=== PATIENT | female | born 1945 | race Caucasian/White ===

== ENCOUNTER 2018-02-16 13:21 | Inpatient (IN) | payer OTHER, MEDICAID ==
[~2018-02-16] VITALS: Ht 160 cm; Wt 83.0 kg
[2018-02-16 13:29] VITALS: BP_SYST 124
[2018-02-16] MEDS ORDERED: NACL 0.9% 1,000 ML IV ONE (14:15)
[2018-02-16 14:31] LABS: BASOPHILS # (AUTO) 0.1 K/uL (0.0-0.2); BASOPHILS % (AUTO) 0.7 % (0.0-2.0); EOSINOPHILS # (AUTO) 0.3 K/uL (0.0-0.4); EOSINOPHILS % (AUTO) 3.6 % (0.0-4.0); HEMATOCRIT 23.7 % (36-48); HEMOGLOBIN 7.5 g/dL (12.0-16.0); LYMPHOCYTES # (AUTO) 1.9 K/uL (1.0-5.5); LYMPHOCYTES % (AUTO) 20.8 % (20.5-51.5); MEAN CORPUSCULAR HEMOGLOBIN 28 pg (27-31); MEAN CORPUSCULAR HGB CONC 32 % (32-36); MEAN CORPUSCULAR VOLUME 87 fL (79.0-98.0); MONOCYTES # (AUTO) 0.5 K/uL (0.0-1.0); NEUTROPHILS # (AUTO) 6.2 K/uL (1.8-7.7); NEUTROPHILS % (AUTO) 68.9 % (40.0-70.0); PLATELET COUNT (AUTO) 458 K/uL (130-430); RED BLOOD CELL COUNT(AUTO) 2.71 MIL/uL (4.2-6.2); RED CELL DISTRIBUTION WIDTH 19.4 % (9.0-15.0); WHITE BLOOD COUNT (AUTO) 9.1 K/uL (4.8-10.8)
[2018-02-16 14:38] LABS: ANION GAP 2 (5-15); CALCIUM 9.6 mg/dL (8.4-11.0); CHLORIDE 99 mmol/L (98-107); CREATININE 1.72 mg/dL (0.55-1.30); GLUCOSE 168 mg/dL (70-99); POTASSIUM 4.7 mmol/L (3.5-5.1); PROTHROMBIN TIME 10.3 SECS (9.5-12.5); SODIUM SERUM 134 mmol/L (136-145); UREA NITROGEN, BLOOD 56 mg/dL (8-21)
[2018-02-16 14:43] LABS: ALANINE AMINOTRANSFERASE 10 U/L (12-78); ALBUMIN 2.5 g/dL (3.4-4.8); ASPARTATE AMINOTRANSFERASE 16 U/L (10-37); LIPASE 145 U/L (73-393); TOTAL BILIRUBIN 0.2 mg/dL (0.0-1.0)
[2018-02-16] MEDS ORDERED: PREG75CA PO (15:20)
[2018-02-16] MEDS ORDERED: DOCU-144 PO (15:20)
[2018-02-16] MEDS ORDERED: ACET325T53 PO (15:20)
[2018-02-16] MEDS ORDERED: MOM PO (15:20)
[2018-02-16] MEDS ORDERED: LORA-258 PO (15:20)
[2018-02-16] MEDS ORDERED: SUCR1TAB78 PO (15:20)
[2018-02-16] MEDS ORDERED: FLUT1AER INH (15:20)
[2018-02-16] MEDS ORDERED: LORA-975 PO (15:20)
[2018-02-16] MEDS ORDERED: ASCO500T20 PO (15:20)
[2018-02-16] MEDS ORDERED: IPRA0.2S53 IH (15:20)
[2018-02-16] MEDS ORDERED: LINA290C PO (15:20)
[2018-02-16] MEDS ORDERED: INSNLG7030 SUBCUT (15:20)
[2018-02-16] MEDS ORDERED: MELA3TAB PO (15:20)
[2018-02-16] MEDS ORDERED: RANI300T7 PO (15:20)
[2018-02-16] MEDS ORDERED: FERR12.5 PO (15:20)
[2018-02-16] MEDS ORDERED: OXYC5SOL17 PO (15:20)
[2018-02-16] MEDS ORDERED: FEN12PAT TD (15:20)
[2018-02-16] MEDS ORDERED: SITA100T11 PO (15:20)
[2018-02-16] MEDS ORDERED: SIMV10TA2 PO (15:20)
[2018-02-16] MEDS ORDERED: MEMA5TAB PO (15:20)
[2018-02-16] MEDS ORDERED: NITSL SL (15:20)
[2018-02-16] MEDS ORDERED: OXYC-580 PO (15:20)
[2018-02-16] MEDS ORDERED: OMEP40CA33 PO (15:20)
[2018-02-16] MEDS ORDERED: ALLO100T PO (15:20)
[2018-02-16] MEDS ORDERED: BUPR75TA8 (15:20)
[2018-02-16] MEDS ORDERED: LOSA50TA3 PO (15:20)
[2018-02-16] MEDS ORDERED: INSULIN ASPART 100 UNITS/ML, 10 ML VIAL (NovoLOG) SUBCUT PRN (15:30)
[2018-02-16 16:40] VITALS: BP_SYST 100
[2018-02-16 16:55] VITALS: BP_SYST 100
[2018-02-16] MEDS ORDERED: OXYCODONE HCL 5 MG PO PRN (17:30)
[2018-02-16] MEDS ORDERED: SUCRALFATE 1 GM TABLET PO PRN (17:30)
[2018-02-16] MEDS ORDERED: NITROGLYCERIN 0.4 MG TAB.SUBL SL PRN (17:30)
[2018-02-16] MEDS ORDERED: ACETAMINOPHEN 650 MG/20.3 ML UDC GT PRN (18:00)
[2018-02-16] MEDS: DIPHENHYDRAMINE HCL 12.5 MG/5 ML UDC PO PRN (18:24)
[2018-02-16] MEDS: oxyCODONE HCL 5 MG TABLET PO PRN (18:24)
[2018-02-16] MEDS ORDERED: ALLOPURINOL 100 MG TABLET (ZYLOPRIM) PO ONE (18:30)
[2018-02-16 20:00] VITALS: BP_SYST 122
[2018-02-16] MEDS: DOCUSATE SODIUM 100 MG CAPSULE PO SCH (21:46)
[2018-02-16] MEDS: LORazepam 1 MG TABLET PO SCH (21:46)
[2018-02-16] MEDS: PREGABALIN 75 MG CAPSULE (LYRICA) PO SCH (21:47)
[2018-02-16] MEDS: INSULIN ASPART 100 UNITS/ML, 10 ML VIAL (NovoLOG) SUBCUT PRN (21:56)
[2018-02-16] MEDS: IPRATROPIUM/ALBUTEROL SULFATE 3 ML AMPUL.NEB INH SCH (22:50)
[2018-02-16 23:12] VITALS: BP_SYST 122
[2018-02-17 00:53] VITALS: BP_SYST 102
[2018-02-17 04:32] LABS: BILIRUBIN,URINE NEGATIVE (NEGATIVE); BLOOD, URINE 1+ (NEGATIVE); COLOR,URINE YELLOW (YELLOW); GLUCOSE,URINE NEGATIVE (NEGATIVE); KETONES,URINE NEGATIVE (NEGATIVE); NITRITE, URINE POSITIVE (NEGATIVE); PH,URINE 7.5 (5.0-8.0); PROTEIN URINE NEGATIVE (NEGATIVE); UROBILINOGEN,URINE 0.2 (0.2-1.0)
[2018-02-17 04:36] LABS: CLARITY/URINE HAZY (CLEAR); LEUKOCYTE ESTERASE ,URINE 3+ (NEGATIVE)
[2018-02-17 04:55] LABS: BACTERIA,URINE MANY /HPF (None Seen); WBC,URINE 80-100 /HPF (0-3)
[2018-02-17] MEDS: oxyCODONE HCL 5 MG TABLET PO PRN ×4 (06:30→22:41)
[2018-02-17 06:51] LABS: ANION GAP 4 (5-15); CALCIUM 9.4 mg/dL (8.4-11.0); CHLORIDE 102 mmol/L (98-107); CREATININE 2.17 mg/dL (0.55-1.30); GLUCOSE 137 mg/dL (70-99); POTASSIUM 4.6 mmol/L (3.5-5.1); SODIUM SERUM 139 mmol/L (136-145); UREA NITROGEN, BLOOD 53 mg/dL (8-21)
[2018-02-17 06:58] LABS: BASOPHILS # (AUTO) 0.1 K/uL (0.0-0.2); BASOPHILS % (AUTO) 0.8 % (0.0-2.0); EOSINOPHILS # (AUTO) 0.3 K/uL (0.0-0.4); EOSINOPHILS % (AUTO) 3.8 % (0.0-4.0); HEMOGLOBIN 8.6 g/dL (12.0-16.0); LYMPHOCYTES # (AUTO) 1.9 K/uL (1.0-5.5); LYMPHOCYTES % (AUTO) 25.2 % (20.5-51.5); MEAN CORPUSCULAR HEMOGLOBIN 29 pg (27-31); MEAN CORPUSCULAR HGB CONC 33 % (32-36); MEAN CORPUSCULAR VOLUME 89 fL (79.0-98.0); MONOCYTES # (AUTO) 0.6 K/uL (0.0-1.0); MONOCYTES % (AUTO) 7.4 % (1.7-9.3); NEUTROPHILS # (AUTO) 4.8 K/uL (1.8-7.7); NEUTROPHILS % (AUTO) 62.8 % (40.0-70.0); PLATELET COUNT (AUTO) 449 K/uL (130-430); RED BLOOD CELL COUNT(AUTO) 2.93 MIL/uL (4.2-6.2); RED CELL DISTRIBUTION WIDTH 18.1 % (9.0-15.0); WHITE BLOOD COUNT (AUTO) 7.7 K/uL (4.8-10.8)
[2018-02-17 07:08] LABS: ALANINE AMINOTRANSFERASE 10 U/L (12-78); ALBUMIN 2.5 g/dL (3.4-4.8); ASPARTATE AMINOTRANSFERASE 15 U/L (10-37); THYROID STIMULATING HORMONE 3.14 uIu/mL (0.36-3.74); TOTAL BILIRUBIN 0.2 mg/dL (0.0-1.0)
[2018-02-17] MEDS: IPRATROPIUM/ALBUTEROL SULFATE 3 ML AMPUL.NEB INH SCH ×2 (07:41→15:23)
[2018-02-17 08:30] VITALS: BP_SYST 118
[2018-02-17] MEDS: LORazepam 1 MG TABLET PO SCH ×2 (08:49→20:33)
[2018-02-17] MEDS: DOCUSATE SODIUM 100 MG CAPSULE PO SCH ×2 (08:51→20:33)
[2018-02-17] MEDS: ALLOPURINOL 100 MG TABLET (ZYLOPRIM) PO SCH (08:51)
[2018-02-17] MEDS: SIMVASTATIN 10 MG TABLET PO SCH (08:51)
[2018-02-17] MEDS: OMEPRAZOLE 20 MG CAPSULE.DR (PriLOSEC) PO SCH (08:51)
[2018-02-17] MEDS: DIPHENHYDRAMINE HCL 12.5 MG/5 ML UDC PO PRN ×2 (08:51→20:34)
[2018-02-17] MEDS: MEMANTINE HCL 5 MG TABLET PO SCH (08:52)
[2018-02-17] MEDS: PREGABALIN 75 MG CAPSULE (LYRICA) PO SCH ×2 (08:54→20:34)
[2018-02-17] MEDS: buPROPion HCL 75 MG TABLET GT SCH (08:54)
[2018-02-17] MEDS: LOSARTAN POTASSIUM 50 MG TABLET (COZAAR) PO SCH (08:54)
[2018-02-17] MEDS ORDERED: fentaNYL 12 MCG/HR PATCH TD SCH (09:00)
[2018-02-17] MEDS: INSULIN ASPART 100 UNITS/ML, 10 ML VIAL (NovoLOG) SUBCUT PRN ×2 (11:05→20:48)
[2018-02-17 12:00] VITALS: BP_SYST 122
[2018-02-17] MEDS ORDERED: FUROSEMIDE 20 MG/2 ML VIAL IVP ONE (12:00)
[2018-02-17] MEDS: BALSAM PERU/CASTOR OIL 60 GM OINT...G. TP SCH (12:46)
[2018-02-17] MEDS ORDERED: BUDESONIDE 0.5 MG/2 ML AMPUL.NEB INH ONE (13:45)
[2018-02-17] MEDS ORDERED: cefTRIAXone 1 GM in D5W 50 ML IV ONE (14:00)
[2018-02-17] MEDS: MORPHINE 2 MG/ML INJ. SYRINGE IVP PRN (14:34)
[2018-02-17 16:03] VITALS: BP_SYST 128
[2018-02-17 20:00] VITALS: BP_SYST 114
[2018-02-17] MEDS: MILK OF MAGNESIA 30 ML UDC PO PRN (20:34)
[2018-02-17] MEDS ORDERED: VANCOMYCIN HCL 1 GM/NS PREMIX 250 ML IV ONE (21:00)
[2018-02-17] MEDS ORDERED: VANCOMYCIN HCL 1000 MG/VIAL IV ONE (21:09)
[2018-02-18] MEDS: MORPHINE 2 MG/ML INJ. SYRINGE IVP PRN ×2 (00:42→21:43)
[2018-02-18 00:43] VITALS: BP_SYST 130
[2018-02-18] MEDS: IPRATROPIUM/ALBUTEROL SULFATE 3 ML AMPUL.NEB INH SCH ×2 (00:47→07:18)
[2018-02-18] MEDS: INSULIN ASPART 100 UNITS/ML, 10 ML VIAL (NovoLOG) SUBCUT PRN ×2 (05:39→21:52)
[2018-02-18 07:24] LABS: ALANINE AMINOTRANSFERASE 10 U/L (12-78); ALBUMIN 2.3 g/dL (3.4-4.8); ANION GAP 5 (5-15); ASPARTATE AMINOTRANSFERASE 11 U/L (10-37); CALCIUM 9.2 mg/dL (8.4-11.0); CHLORIDE 102 mmol/L (98-107); CREATININE 1.85 mg/dL (0.55-1.30); GLUCOSE 159 mg/dL (70-99); POTASSIUM 4.6 mmol/L (3.5-5.1); SODIUM SERUM 140 mmol/L (136-145); TOTAL BILIRUBIN 0.2 mg/dL (0.0-1.0); UREA NITROGEN, BLOOD 51 mg/dL (8-21)
[2018-02-18 07:29] LABS: BASOPHILS % (AUTO) 0.3 % (0.0-2.0); EOSINOPHILS # (AUTO) 0.3 K/uL (0.0-0.4); EOSINOPHILS % (AUTO) 3.5 % (0.0-4.0); HEMATOCRIT 25.3 % (36-48); HEMOGLOBIN 8.5 g/dL (12.0-16.0); LYMPHOCYTES # (AUTO) 1.3 K/uL (1.0-5.5); LYMPHOCYTES % (AUTO) 17.2 % (20.5-51.5); MEAN CORPUSCULAR HEMOGLOBIN 30 pg (27-31); MEAN CORPUSCULAR HGB CONC 34 % (32-36); MEAN CORPUSCULAR VOLUME 88 fL (79.0-98.0); MONOCYTES # (AUTO) 0.6 K/uL (0.0-1.0); MONOCYTES % (AUTO) 7.7 % (1.7-9.3); NEUTROPHILS # (AUTO) 5.3 K/uL (1.8-7.7); NEUTROPHILS % (AUTO) 71.3 % (40.0-70.0); PLATELET COUNT (AUTO) 390 K/uL (130-430); RED BLOOD CELL COUNT(AUTO) 2.86 MIL/uL (4.2-6.2); WHITE BLOOD COUNT (AUTO) 7.5 K/uL (4.8-10.8)
[2018-02-18 07:32] LABS: TOTAL IRON BIND. CAPACITY 241 ug/dL (250-450)
[2018-02-18 08:13] VITALS: BP_SYST 150
[2018-02-18] MEDS: cefTRIAXone 1 GM in D5W 50 ML IV SCH (09:14)
[2018-02-18] MEDS: FUROSEMIDE 20 MG/2 ML VIAL IVP SCH (09:16)
[2018-02-18] MEDS: MILK OF MAGNESIA 30 ML UDC PO PRN (09:16)
[2018-02-18] MEDS: oxyCODONE HCL 5 MG TABLET PO PRN ×4 (09:17→23:39)
[2018-02-18] MEDS: PREGABALIN 75 MG CAPSULE (LYRICA) PO SCH ×2 (09:17→21:43)
[2018-02-18] MEDS: DOCUSATE SODIUM 100 MG CAPSULE PO SCH ×2 (09:17→21:43)
[2018-02-18] MEDS: buPROPion HCL 75 MG TABLET GT SCH (09:18)
[2018-02-18] MEDS: LORazepam 1 MG TABLET PO SCH ×2 (09:18→21:43)
[2018-02-18] MEDS: SIMVASTATIN 10 MG TABLET PO SCH (09:18)
[2018-02-18] MEDS: MEMANTINE HCL 5 MG TABLET PO SCH (09:18)
[2018-02-18] MEDS: ALLOPURINOL 100 MG TABLET (ZYLOPRIM) PO SCH (09:18)
[2018-02-18] MEDS: LOSARTAN POTASSIUM 50 MG TABLET (COZAAR) PO SCH (09:18)
[2018-02-18] MEDS: OMEPRAZOLE 20 MG CAPSULE.DR (PriLOSEC) PO SCH (09:18)
[2018-02-18] MEDS: BALSAM PERU/CASTOR OIL 60 GM OINT...G. TP SCH (09:19)
[2018-02-18 11:32] VITALS: BP_SYST 101
[2018-02-18] MEDS ORDERED: *CUBICIN 6 MG/KG Q48H/PHARMACY XX PRN (13:45)
[2018-02-18] MEDS: DAPTOmycin 500 MG in NS 50 ML IV SCH (15:20)
[2018-02-18 15:59] VITALS: BP_SYST 105
[2018-02-18] MEDS ORDERED: MAGNESIUM CITRATE 300 ML ORAL SOLUTION PO SCH (20:00)
[2018-02-18 20:45] VITALS: BP_SYST 110
[2018-02-18] MEDS: guaiFENesin ER 600 MG TAB PO SCH (21:43)
[2018-02-19 00:46] VITALS: BP_SYST 124
[2018-02-19] MEDS: MORPHINE 2 MG/ML INJ. SYRINGE IVP PRN ×4 (01:45→16:31)
[2018-02-19] MEDS: oxyCODONE HCL 5 MG TABLET PO PRN ×3 (05:59→22:11)
[2018-02-19 07:07] LABS: ANION GAP 2 (5-15); CALCIUM 8.9 mg/dL (8.4-11.0); CHLORIDE 101 mmol/L (98-107); CREATININE 1.71 mg/dL (0.55-1.30); GLUCOSE 137 mg/dL (70-99); POTASSIUM 4.4 mmol/L (3.5-5.1); SODIUM SERUM 138 mmol/L (136-145); UREA NITROGEN, BLOOD 50 mg/dL (8-21)
[2018-02-19] MEDS: IPRATROPIUM/ALBUTEROL SULFATE 3 ML AMPUL.NEB INH SCH ×4 (07:26→23:09)
[2018-02-19 07:51] VITALS: BP_SYST 125
[2018-02-19 08:30] VITALS: BP_SYST 105
[2018-02-19] MEDS: cefTRIAXone 1 GM in D5W 50 ML IV SCH (08:43)
[2018-02-19] MEDS: OMEPRAZOLE 20 MG CAPSULE.DR (PriLOSEC) PO SCH (08:44)
[2018-02-19] MEDS: guaiFENesin ER 600 MG TAB PO SCH ×2 (08:44→20:36)
[2018-02-19] MEDS: DOCUSATE SODIUM 100 MG CAPSULE PO SCH (08:44)
[2018-02-19] MEDS: MEMANTINE HCL 5 MG TABLET PO SCH (08:44)
[2018-02-19] MEDS: SIMVASTATIN 10 MG TABLET PO SCH (08:44)
[2018-02-19] MEDS: buPROPion HCL 75 MG TABLET GT SCH (08:45)
[2018-02-19] MEDS: ALLOPURINOL 100 MG TABLET (ZYLOPRIM) PO SCH (08:45)
[2018-02-19] MEDS: PREGABALIN 75 MG CAPSULE (LYRICA) PO SCH ×2 (08:45→20:36)
[2018-02-19] MEDS: LORazepam 1 MG TABLET PO SCH (08:45)
[2018-02-19] MEDS: BALSAM PERU/CASTOR OIL 60 GM OINT...G. TP SCH (08:47)
[2018-02-19] MEDS ORDERED: LORATADINE 10 MG TABLET PO PRN (09:00)
[2018-02-19] MEDS: DIPHENHYDRAMINE HCL 12.5 MG/5 ML UDC PO PRN (10:27)
[2018-02-19] MEDS ORDERED: COMMUNICATION ORDER XX ONE ×2 (10:30→19:15)
[2018-02-19 11:31] VITALS: BP_SYST 133
[2018-02-19] MEDS: FUROSEMIDE 20 MG/2 ML VIAL IVP SCH (11:34)
[2018-02-19] MEDS ORDERED: DIPHENHYDRAMINE HCL 12.5 MG/5 ML UDC GT ONE (11:45)
[2018-02-19] MEDS ORDERED: DIPHENHYDRAMINE HCL 12.5 MG/5 ML UDC ONE (11:56)
[2018-02-19] MEDS ORDERED: ALLOPURINOL 100 MG TABLET (ZYLOPRIM) GT SCH (13:30)
[2018-02-19 14:17] LABS: RED BLOOD CELL COUNT(AUTO) 2.91 MIL/uL (4.2-6.2); WHITE BLOOD COUNT (AUTO) 6.5 K/uL (4.8-10.8)
[2018-02-19 14:18] LABS: HEMOGLOBIN 8.2 g/dL (12.0-16.0); MEAN CORPUSCULAR HEMOGLOBIN 28 pg (27-31); MEAN CORPUSCULAR VOLUME 89 fL (79.0-98.0); RED CELL DISTRIBUTION WIDTH 19.3 % (9.0-15.0)
[2018-02-19 14:19] LABS: BASOPHILS % (AUTO) 0.5 % (0.0-2.0); EOSINOPHILS # (AUTO) 0.3 K/uL (0.0-0.4); EOSINOPHILS % (AUTO) 4.9 % (0.0-4.0); LYMPHOCYTES # (AUTO) 1.7 K/uL (1.0-5.5); LYMPHOCYTES % (AUTO) 26.3 % (20.5-51.5); MONOCYTES # (AUTO) 0.7 K/uL (0.0-1.0); MONOCYTES % (AUTO) 11.1 % (1.7-9.3); NEUTROPHILS # (AUTO) 3.7 K/uL (1.8-7.7); NEUTROPHILS % (AUTO) 57.2 % (40.0-70.0); PLATELET COUNT (AUTO) 332 K/uL (130-430)
[2018-02-19] MEDS: MENTHOL/ZINC OXIDE 113 GM OINT. TP PRN (15:21)
[2018-02-19 15:43] VITALS: BP_SYST 116
[2018-02-19] MEDS: MILK OF MAGNESIA 30 ML UDC PO PRN (16:31)
[2018-02-19] MEDS: LOSARTAN POTASSIUM 50 MG TABLET (COZAAR) PO SCH (16:32)
[2018-02-19] MEDS: DIPHENHYDRAMINE HCL 12.5 MG/5 ML UDC GT PRN (18:40)
[2018-02-19] MEDS ORDERED: LORATADINE 10 MG TABLET PO ONE (20:00)
[2018-02-19] MEDS: DOCUSATE SODIUM 100 MG/10 ML UDC GT SCH (20:36)
[2018-02-19] MEDS: LORazepam 1 MG TABLET GT SCH (20:36)
[2018-02-19] MEDS: INSULIN ASPART 100 UNITS/ML, 10 ML VIAL (NovoLOG) SUBCUT PRN (22:06)
[2018-02-19 23:58] VITALS: BP_SYST 134
[2018-02-20 00:30] VITALS: BP_SYST 142
[2018-02-20] MEDS: MORPHINE 2 MG/ML INJ. SYRINGE IVP PRN (01:49)
[2018-02-20] MEDS: oxyCODONE HCL 5 MG TABLET PO PRN ×2 (02:32→06:19)
[2018-02-20] MEDS: MENTHOL/ZINC OXIDE 113 GM OINT. TP PRN (02:40)
[2018-02-20] MEDS: DIPHENHYDRAMINE HCL 12.5 MG/5 ML UDC GT PRN ×3 (04:14→22:54)
[2018-02-20] MEDS: INSULIN ASPART 100 UNITS/ML, 10 ML VIAL (NovoLOG) SUBCUT PRN ×4 (06:30→21:51)
[2018-02-20] MEDS: IPRATROPIUM/ALBUTEROL SULFATE 3 ML AMPUL.NEB INH SCH ×2 (07:16→23:10)
[2018-02-20] MEDS ORDERED: MILK OF MAGNESIA 30 ML UDC GT PRN (08:08)
[2018-02-20] MEDS ORDERED: SUCRALFATE 1 GM TABLET GT PRN (08:12)
[2018-02-20] MEDS: ALLOPURINOL 100 MG TABLET (ZYLOPRIM) GT SCH (08:45)
[2018-02-20] MEDS: DOCUSATE SODIUM 100 MG/10 ML UDC GT SCH ×2 (08:45→21:24)
[2018-02-20] MEDS: SIMVASTATIN 10 MG TABLET GT SCH (08:45)
[2018-02-20] MEDS: OMEPRAZOLE 20 MG CAPSULE.DR (PriLOSEC) GT SCH (08:45)
[2018-02-20] MEDS: FUROSEMIDE 20 MG/2 ML VIAL IVP SCH (08:45)
[2018-02-20] MEDS: LOSARTAN POTASSIUM 50 MG TABLET (COZAAR) GT SCH (08:46)
[2018-02-20] MEDS: buPROPion HCL 75 MG TABLET GT SCH (08:46)
[2018-02-20] MEDS: PREGABALIN 75 MG CAPSULE (LYRICA) GT SCH ×2 (08:46→21:26)
[2018-02-20] MEDS: guaiFENesin ER 600 MG TAB PO SCH ×2 (08:46→21:27)
[2018-02-20] MEDS: MEMANTINE HCL 5 MG TABLET GT SCH (08:46)
[2018-02-20] MEDS: cefTRIAXone 1 GM in D5W 50 ML IV SCH (08:47)
[2018-02-20] MEDS: LORazepam 1 MG TABLET GT SCH ×2 (08:47→21:26)
[2018-02-20 09:31] VITALS: BP_SYST 135
[2018-02-20] MEDS: oxyCODONE HCL 5 MG TABLET GT PRN ×3 (09:48→21:26)
[2018-02-20 12:00] VITALS: BP_SYST 108
[2018-02-20 16:00] VITALS: BP_SYST 113
[2018-02-20] MEDS: DAPTOmycin 500 MG in NS 50 ML IV SCH (16:36)
[2018-02-20] MEDS: BALSAM PERU/CASTOR OIL 60 GM OINT...G. TP SCH (16:37)
[2018-02-20 19:45] VITALS: BP_SYST 140
[2018-02-20] MEDS: NYSTATIN 15 GM TOPICAL POWDER TP SCH (21:27)
[2018-02-21 00:21] VITALS: BP_SYST 123
[2018-02-21] MEDS: DIPHENHYDRAMINE HCL 12.5 MG/5 ML UDC GT PRN ×2 (05:56→21:19)
[2018-02-21] MEDS: oxyCODONE HCL 5 MG TABLET GT PRN ×4 (05:56→21:27)
[2018-02-21] MEDS: IPRATROPIUM/ALBUTEROL SULFATE 3 ML AMPUL.NEB INH SCH ×3 (07:42→23:16)
[2018-02-21 07:46] LABS: ALANINE AMINOTRANSFERASE 11 U/L (12-78); ALBUMIN 2.5 g/dL (3.4-4.8); ANION GAP 1 (5-15); ASPARTATE AMINOTRANSFERASE 13 U/L (10-37); CALCIUM 9.5 mg/dL (8.4-11.0); CHLORIDE 99 mmol/L (98-107); GLUCOSE 139 mg/dL (70-99); POTASSIUM 4.1 mmol/L (3.5-5.1); SODIUM SERUM 136 mmol/L (136-145); TOTAL BILIRUBIN 0.2 mg/dL (0.0-1.0); UREA NITROGEN, BLOOD 46 mg/dL (8-21)
[2018-02-21 08:00] VITALS: BP_SYST 134
[2018-02-21] MEDS: cefTRIAXone 1 GM in D5W 50 ML IV SCH (08:37)
[2018-02-21] MEDS: DOCUSATE SODIUM 100 MG/10 ML UDC GT SCH ×2 (08:37→21:24)
[2018-02-21] MEDS: FUROSEMIDE 20 MG/2 ML VIAL IVP SCH (08:39)
[2018-02-21] MEDS: OMEPRAZOLE 20 MG CAPSULE.DR (PriLOSEC) GT SCH (08:40)
[2018-02-21] MEDS: NYSTATIN 15 GM TOPICAL POWDER TP SCH ×2 (08:40→21:28)
[2018-02-21] MEDS: buPROPion HCL 75 MG TABLET GT SCH (08:40)
[2018-02-21] MEDS: SIMVASTATIN 10 MG TABLET GT SCH (08:41)
[2018-02-21] MEDS: guaiFENesin ER 600 MG TAB PO SCH ×2 (08:41→21:27)
[2018-02-21] MEDS: ALLOPURINOL 100 MG TABLET (ZYLOPRIM) GT SCH (08:41)
[2018-02-21] MEDS: PREGABALIN 75 MG CAPSULE (LYRICA) GT SCH ×2 (08:42→21:27)
[2018-02-21] MEDS: LORazepam 1 MG TABLET GT SCH ×2 (08:42→21:27)
[2018-02-21] MEDS: LOSARTAN POTASSIUM 50 MG TABLET (COZAAR) GT SCH (08:42)
[2018-02-21] MEDS: MEMANTINE HCL 5 MG TABLET GT SCH (08:42)
[2018-02-21] MEDS: BALSAM PERU/CASTOR OIL 60 GM OINT...G. TP SCH (08:43)
[2018-02-21] MEDS: INSULIN ASPART 100 UNITS/ML, 10 ML VIAL (NovoLOG) SUBCUT PRN ×3 (12:04→21:39)
[2018-02-21 12:40] VITALS: BP_SYST 129
[2018-02-21] MEDS: VANCOMYCIN HCL 750 MG in NS 250 ML IV SCH (12:55)
[2018-02-21 16:05] VITALS: BP_SYST 118
[2018-02-21 19:48] VITALS: BP_SYST 118
[2018-02-21] MEDS: LORATADINE 10 MG TABLET GT PRN (21:27)
[2018-02-22] VITALS: BP_SYST 124
[2018-02-22] MEDS: oxyCODONE HCL 5 MG TABLET GT PRN ×4 (05:20→21:05)
[2018-02-22] MEDS: DIPHENHYDRAMINE HCL 12.5 MG/5 ML UDC GT PRN ×3 (05:20→21:06)
[2018-02-22] MEDS: INSULIN ASPART 100 UNITS/ML, 10 ML VIAL (NovoLOG) SUBCUT PRN ×3 (06:23→17:41)
[2018-02-22] MEDS: IPRATROPIUM/ALBUTEROL SULFATE 3 ML AMPUL.NEB INH SCH ×3 (07:13→23:00)
[2018-02-22 08:00] VITALS: BP_SYST 126
[2018-02-22 08:20] LABS: BASOPHILS % (AUTO) 0.6 % (0.0-2.0); EOSINOPHILS # (AUTO) 0.4 K/uL (0.0-0.4); EOSINOPHILS % (AUTO) 6.3 % (0.0-4.0); HEMATOCRIT 24.2 % (36-48); HEMOGLOBIN 7.9 g/dL (12.0-16.0); LYMPHOCYTES # (AUTO) 1.7 K/uL (1.0-5.5); LYMPHOCYTES % (AUTO) 28.7 % (20.5-51.5); MEAN CORPUSCULAR HEMOGLOBIN 28 pg (27-31); MEAN CORPUSCULAR HGB CONC 33 % (32-36); MEAN CORPUSCULAR VOLUME 87 fL (79.0-98.0); MONOCYTES # (AUTO) 0.6 K/uL (0.0-1.0); MONOCYTES % (AUTO) 10.5 % (1.7-9.3); NEUTROPHILS % (AUTO) 53.9 % (40.0-70.0); PLATELET COUNT (AUTO) 354 K/uL (130-430); RED BLOOD CELL COUNT(AUTO) 2.78 MIL/uL (4.2-6.2); RED CELL DISTRIBUTION WIDTH 17.6 % (9.0-15.0); WHITE BLOOD COUNT (AUTO) 5.8 K/uL (4.8-10.8)
[2018-02-22] MEDS: DOCUSATE SODIUM 100 MG/10 ML UDC GT SCH ×2 (09:31→21:04)
[2018-02-22] MEDS: FUROSEMIDE 20 MG/2 ML VIAL IVP SCH (09:31)
[2018-02-22] MEDS: OMEPRAZOLE 20 MG CAPSULE.DR (PriLOSEC) GT SCH (09:31)
[2018-02-22] MEDS: cefTRIAXone 1 GM in D5W 50 ML IV SCH (09:31)
[2018-02-22] MEDS: guaiFENesin ER 600 MG TAB PO SCH ×2 (09:32→21:04)
[2018-02-22] MEDS: SIMVASTATIN 10 MG TABLET GT SCH (09:32)
[2018-02-22] MEDS: ALLOPURINOL 100 MG TABLET (ZYLOPRIM) GT SCH (09:32)
[2018-02-22] MEDS: MEMANTINE HCL 5 MG TABLET GT SCH (09:32)
[2018-02-22] MEDS: buPROPion HCL 75 MG TABLET GT SCH (09:32)
[2018-02-22] MEDS: PREGABALIN 75 MG CAPSULE (LYRICA) GT SCH ×2 (09:32→21:04)
[2018-02-22] MEDS: LORazepam 1 MG TABLET GT SCH ×2 (09:32→21:05)
[2018-02-22] MEDS: LOSARTAN POTASSIUM 50 MG TABLET (COZAAR) GT SCH (09:32)
[2018-02-22] MEDS: BALSAM PERU/CASTOR OIL 60 GM OINT...G. TP SCH (09:33)
[2018-02-22] MEDS: NYSTATIN 15 GM TOPICAL POWDER TP SCH ×2 (09:33→21:06)
[2018-02-22] MEDS: VANCOMYCIN HCL 750 MG in NS 250 ML IV SCH (12:11)
[2018-02-22 12:34] VITALS: BP_SYST 118
[2018-02-22 16:06] VITALS: BP_SYST 122
[2018-02-22] MEDS: FLUCONAZOLE 100 mg/ NS 50 ML IV SCH (18:05)
[2018-02-22 19:45] VITALS: BP_SYST 148
[2018-02-22] MEDS: LORATADINE 10 MG TABLET GT PRN (21:05)
[2018-02-23] VITALS: BP_SYST 119
[2018-02-23] MEDS: oxyCODONE HCL 5 MG TABLET GT PRN ×3 (01:35→16:32)
[2018-02-23] MEDS: DIPHENHYDRAMINE HCL 12.5 MG/5 ML UDC GT PRN ×2 (05:54→16:32)
[2018-02-23] MEDS: INSULIN ASPART 100 UNITS/ML, 10 ML VIAL (NovoLOG) SUBCUT PRN ×3 (06:13→17:27)
[2018-02-23 06:54] LABS: BASOPHILS % (AUTO) 0.5 % (0.0-2.0); EOSINOPHILS # (AUTO) 0.3 K/uL (0.0-0.4); HEMATOCRIT 26.8 % (36-48); HEMOGLOBIN 8.9 g/dL (12.0-16.0); LYMPHOCYTES # (AUTO) 1.4 K/uL (1.0-5.5); LYMPHOCYTES % (AUTO) 22.2 % (20.5-51.5); MEAN CORPUSCULAR HEMOGLOBIN 29 pg (27-31); MEAN CORPUSCULAR HGB CONC 33 % (32-36); MEAN CORPUSCULAR VOLUME 88 fL (79.0-98.0); MONOCYTES # (AUTO) 0.5 K/uL (0.0-1.0); MONOCYTES % (AUTO) 7.6 % (1.7-9.3); NEUTROPHILS # (AUTO) 3.9 K/uL (1.8-7.7); NEUTROPHILS % (AUTO) 64.7 % (40.0-70.0); PLATELET COUNT (AUTO) 367 K/uL (130-430); RED BLOOD CELL COUNT(AUTO) 3.05 MIL/uL (4.2-6.2); RED CELL DISTRIBUTION WIDTH 17.3 % (9.0-15.0); WHITE BLOOD COUNT (AUTO) 6.1 K/uL (4.8-10.8)
[2018-02-23] MEDS: IPRATROPIUM/ALBUTEROL SULFATE 3 ML AMPUL.NEB INH SCH ×2 (07:32→15:00)
[2018-02-23 08:00] VITALS: BP_SYST 156
[2018-02-23] MEDS ORDERED: cefTRIAXone 1 GM in D5W 50 ML IV SCH (09:00)
[2018-02-23] MEDS: DOCUSATE SODIUM 100 MG/10 ML UDC GT SCH (09:26)
[2018-02-23] MEDS: MEMANTINE HCL 5 MG TABLET GT SCH (09:27)
[2018-02-23] MEDS: FUROSEMIDE 20 MG/2 ML VIAL IVP SCH (09:27)
[2018-02-23] MEDS: guaiFENesin ER 600 MG TAB PO SCH (09:27)
[2018-02-23] MEDS: PREGABALIN 75 MG CAPSULE (LYRICA) GT SCH (09:27)
[2018-02-23] MEDS: OMEPRAZOLE 20 MG CAPSULE.DR (PriLOSEC) GT SCH (09:27)
[2018-02-23] MEDS: LORazepam 1 MG TABLET GT SCH (09:27)
[2018-02-23] MEDS: ALLOPURINOL 100 MG TABLET (ZYLOPRIM) GT SCH (09:27)
[2018-02-23] MEDS: buPROPion HCL 75 MG TABLET GT SCH (09:28)
[2018-02-23] MEDS: SIMVASTATIN 10 MG TABLET GT SCH (09:28)
[2018-02-23] MEDS: LOSARTAN POTASSIUM 50 MG TABLET (COZAAR) GT SCH (09:28)
[2018-02-23 11:07] LABS: FOLATE (FOLIC ACID) 10.7 ng/mL (>3.0)
[2018-02-23 12:16] LABS: PROTHROMBIN TIME 10.1 SECS (9.5-12.5)
[2018-02-23 12:25] VITALS: BP_SYST 132
[2018-02-23] MEDS: NYSTATIN 15 GM TOPICAL POWDER TP SCH (12:30)
[2018-02-23] MEDS: BALSAM PERU/CASTOR OIL 60 GM OINT...G. TP SCH (12:32)
[2018-02-23 13:00] VITALS: BP_SYST 132
[2018-02-23 16:18] VITALS: BP_SYST 135
[2018-02-23] MEDS: FLUCONAZOLE 100 mg/ NS 50 ML IV SCH (17:23)
[2018-02-23 18:06] VITALS: BP_SYST 140
== END 2018-02-23 19:05 | DRG 871 ==
LOC: SED 13:21 → STU 15:17 → SMU 02-21 15:54
PROVIDERS: ADMIT Internal Medicine; ATTEND Internal Medicine
PROC: 30233N1 Transfusion of Nonautologous Red Blood Cells into Peripheral Vein, Percutaneous Approach (ICD-10-PCS; principal; 2018-02-16)
PROC: 05HY33Z Insertion of Infusion Device into Upper Vein, Percutaneous Approach (ICD-10-PCS; 2018-02-23)
PROC: B54NZZA Ultrasonography of Left Upper Extremity Veins, Guidance (ICD-10-PCS; 2018-02-23)
DX: A41.1 Sepsis due to other specified staphylococcus (principal); J69.0 Pneumonitis due to inhalation of food and vomit; E46 Unspecified protein-calorie malnutrition; I13.0 Hypertensive heart and chronic kidney disease with heart failure and stage 1 through stage 4 chronic kidney disease, or unspecified chronic kidney disease; N39.0 Urinary tract infection, site not specified; N17.9 Acute kidney failure, unspecified; L89.159 Pressure ulcer of sacral region, unspecified stage; D63.8 Anemia in other chronic diseases classified elsewhere; E11.22 Type 2 diabetes mellitus with diabetic chronic kidney disease; N18.3 Chronic kidney disease, stage 3 (moderate); K21.9 Gastro-esophageal reflux disease without esophagitis; E11.40 Type 2 diabetes mellitus with diabetic neuropathy, unspecified; I50.9 Heart failure, unspecified; J20.9 Acute bronchitis, unspecified; M54.5 Low back pain; M25.562 Pain in left knee; E11.51 Type 2 diabetes mellitus with diabetic peripheral angiopathy without gangrene; R13.10 Dysphagia, unspecified; F03.90 Unspecified dementia, unspecified severity, without behavioral disturbance, psychotic disturbance, mood disturbance, and anxiety; E66.9 Obesity, unspecified; Z68.32 Body mass index [BMI] 32.0-32.9, adult; Z85.44 Personal history of malignant neoplasm of other female genital organs; Z88.5 Allergy status to narcotic agent; Z91.018 Allergy to other foods; Z79.899 Other long term (current) drug therapy; Z79.84 Long term (current) use of oral hypoglycemic drugs; Z92.3 Personal history of irradiation; Z93.1 Gastrostomy status
CPT/HCPCS: 36415; 71045; 72100-TC; 73560-TC; 80048; 80053; 81000-TC; 82607; 82746; 82962; 83540-TC; 83550-TC; 83605; 83690-TC; 83735-TC; 83880; 84302-TC; 84443-TC; 85025; 85610-TC; 85730-TC; 86886; 86900; 86901; 86920; 87040-TC; 87081; 87086; 87186-TC; 92610-GN; 94640; 94760; 99285; C1751; J0696; J0878; J1450; J1815; J1940; J2270; J3370; J7030; J7050; J7060; J7620; J7626; P9021